=== PATIENT | male | born 1995 | race Caucasian/White ===

== ENCOUNTER 2017-05-08 16:30 | Inpatient (IN) | payer MEDICAID ==
[~2017-05-08] VITALS: Ht 185.4 cm; Wt 80.3 kg
[2017-05-08 17:31] LABS: microscopic required? NO
[2017-05-08 17:52] LABS: PLATELET COUNT 209 x10^3mcL (130-400); RED CELL DISTRIBUTION WIDTH 12.8 % (11.5-14.5)
[2017-05-08 17:58] LABS: UA SPECIFIC GRAVITY <=1.005 (1.005-1.035); urine erythrocyte NEGATIVE (NEGATIVE)
[2017-05-08 18:13] LABS: CALCIUM 8.8 mg/dL (8.5-10.1); CARBON DIOXIDE 26.5 mmol/L (21-32); CHLORIDE SERUM 104 mmol/L (98-107); CREATININE SERUM 0.8 mg/dL (0.7-1.3); GFR1 > 60 mL/min; GLUCOSE SERUM 97 mg/dL (74-106); POTASSIUM SERUM 3.3 mmol/L (3.5-5.1); SODIUM SERUM 143 mmol/L (136-145)
[2017-05-08 18:26] LABS: ALBUMIN 3.8 g/dL (3.4-5.0); ALKALINE PHOSPHATASE 90 U/L (46-116); ALT/SGPT 7 U/L (16-63); AMYLASE 100 U/L (25-115); AST/SGOT 10 U/L (15-37); BILIRUBIN TOTAL 0.25 mg/dL (0.20-1.00); CHOLESTEROL 194 mg/dL (<200); LIPASE 72 IU/L (73-393); MAGNESIUM 1.7 mg/dL (1.8-2.4); T4(THYROXINE) 9.5 ug/dL (4.7-13.3); TOTAL PROTEIN, SERUM 7.3 g/dL (6.4-8.2)
[2017-05-08 18:28] LABS: HDL CHOLESTEROL 31 mg/dL (40-60)
[2017-05-08 18:29] LABS: AMPHETAMINE QUAL UR NONE DETECTED (NEG <=1000)
[2017-05-08 20:53] LABS: FREE T4 1.26 ng/dL (0.76-1.46); T4(THYROXINE) 9.6 ug/dL (4.7-13.3)
[2017-05-08 20:56] LABS: T3 TOTAL 1.09 ng/mL
[2017-05-08 21:18] VITALS: BP 137/84
[2017-05-08] MEDS ORDERED: DIVALPROEX SOD500 M3 PO (21:40)
[2017-05-08] MEDS ORDERED: SUDOGEST60 MG PO (21:41)
[2017-05-08] MEDS ORDERED: RISPERIDONE4 M2 PO (21:41)
[2017-05-08] MEDS ORDERED: BENZTROPINE MESY1 MG PO (21:44)
[2017-05-09 05:25] VITALS: BP 125/78
[2017-05-09 07:07] LABS: CALCIUM 8.1 mg/dL (8.5-10.1); CARBON DIOXIDE 26.7 mmol/L (21-32); CHLORIDE SERUM 108 mmol/L (98-107); CREATININE SERUM 0.8 mg/dL (0.7-1.3); GFR1 > 60 mL/min; GLUCOSE SERUM 87 mg/dL (74-106); MAGNESIUM 2.3 mg/dL (1.8-2.4); PHOSPHOROUS 3.6 mg/dL (2.5-4.9); SODIUM SERUM 143 mmol/L (136-145)
[2017-05-09 07:25] LABS: BASOPHIL % 0.3 % (0-2); PLATELET COUNT 201 x10^3mcL (130-400); RED CELL DISTRIBUTION WIDTH 14.2 % (11.5-14.5)
[2017-05-09 11:49] VITALS: BP 121/56
[2017-05-09 12:53] VITALS: BP 118/69
[2017-05-09 17:18] VITALS: BP 106/58
[2017-05-09 21:24] VITALS: BP 116/61
[2017-05-10 06:37] LABS: CALCIUM 8.5 mg/dL (8.5-10.1); CARBON DIOXIDE 28.4 mmol/L (21-32); CHLORIDE SERUM 107 mmol/L (98-107); CREATININE SERUM 0.8 mg/dL (0.7-1.3); GFR1 > 60 mL/min; GLUCOSE SERUM 100 mg/dL (74-106); POTASSIUM SERUM 4.1 mmol/L (3.5-5.1); SODIUM SERUM 143 mmol/L (136-145)
[2017-05-10 06:40] LABS: BASOPHIL % 0.6 % (0-2); PLATELET COUNT 193 x10^3mcL (130-400); RED CELL DISTRIBUTION WIDTH 14.3 % (11.5-14.5)
[2017-05-10 06:53] VITALS: BP 123/82
[2017-05-10 09:35] VITALS: BP 94/49
[2017-05-10 09:36] VITALS: BP 123/62
[2017-05-10 12:48] VITALS: BP 114/60
[2017-05-10 17:13] VITALS: BP 98/58
[2017-05-10 20:13] VITALS: BP 100/64
[2017-05-11 06:04] VITALS: BP 105/55
[2017-05-11 09:45] VITALS: BP 119/72
[2017-05-11] MEDS ORDERED: KLO0.5 PO (12:38)
[2017-05-11] MEDS ORDERED: SERO100 PO (12:39)
[2017-05-11] MEDS ORDERED: ABILIFY10 M2 PO (12:39)
[2017-05-11 15:20] VITALS: BP 119/72
[2017-05-11 17:35] VITALS: BP 120/67
[2017-05-11 19:03] VITALS: Ht 185.4 cm; Wt 80.3 kg
[2017-05-11 20:23] VITALS: BP 116/64
[2017-05-12 05:12] VITALS: BP 117/81
[2017-05-12 09:02] VITALS: BP 122/70
[2017-05-12 09:25] VITALS: BP 122/70
== END 2017-05-12 09:45 | disposition home or self-care (01) | DRG 812 ==
LOC: ED 16:30 → DU 19:50 → MU 05-11 10:35
PROVIDERS: Emergency Medicine; Family Medicine
DX: T43.595A Adverse effect of other antipsychotics and neuroleptics, initial encounter (principal); G92 Toxic encephalopathy; E83.42 Hypomagnesemia; G25.71 Drug induced akathisia; F25.9 Schizoaffective disorder, unspecified; E87.6 Hypokalemia; E78.5 Hyperlipidemia, unspecified; G40.909 Epilepsy, unspecified, not intractable, without status epilepticus; D64.9 Anemia, unspecified; F15.10 Other stimulant abuse, uncomplicated; Z72.0 Tobacco use; Z68.23 Body mass index [BMI] 23.0-23.9, adult; Y92.009 Unspecified place in unspecified non-institutional (private) residence as the place of occurrence of the external cause
CPT/HCPCS: 82962; 83880; 84439; G0480; J1956; J2405; J3411; J3475; J3490; J7030; Q0092

== ENCOUNTER 2017-06-29 15:16 | Inpatient (IN) | payer MEDICAID ==
[~2017-06-29] VITALS: Ht 190.5 cm; Wt 88.9 kg
[~2017-06-29 15:16] MED LIST: ABILIFY10 M2 PO; BENZTROPINE MESY1 MG PO; DIVALPROEX SOD500 M3 PO; KLO0.5 PO; RISPERIDONE4 M2 PO; SERO100 PO; SUDOGEST60 MG PO
[2017-06-29 15:49] LABS: BASOPHIL % 0.5 % (0-2); PLATELET COUNT 203 x10^3mcL (130-400); RED CELL DISTRIBUTION WIDTH 13.9 % (11.5-14.5)
[2017-06-29 15:57] LABS: CALCIUM 8.3 mg/dL (8.5-10.1); CARBON DIOXIDE 25.7 mmol/L (21-32); CHLORIDE SERUM 105 mmol/L (98-107); CREATININE SERUM 0.7 mg/dL (0.7-1.3); GFR1 > 60 mL/min; GLUCOSE SERUM 106 mg/dL (74-106); POTASSIUM SERUM 4.3 mmol/L (3.5-5.1); SODIUM SERUM 138 mmol/L (136-145)
[2017-06-29 16:02] LABS: ALBUMIN 3.4 g/dL (3.4-5.0); ALKALINE PHOSPHATASE 85 U/L (46-116); ALT/SGPT 15 U/L (16-63); AST/SGOT 14 U/L (15-37); BILIRUBIN TOTAL 0.16 mg/dL (0.20-1.00); TOTAL PROTEIN, SERUM 6.7 g/dL (6.4-8.2)
[2017-06-29 16:41] LABS: microscopic required? NO
[2017-06-29 17:12] LABS: UA SPECIFIC GRAVITY <=1.005 (1.005-1.035); urine erythrocyte NEGATIVE (NEGATIVE)
[2017-06-29 17:16] LABS: AMPHETAMINE QUAL UR NONE DETECTED (NEG <=1000)
[2017-06-29] MEDS ORDERED: RISPERIDONE4 M2 PO (20:42)
[2017-06-29 21:05] LABS: T3 TOTAL 0.85 ng/mL
[2017-06-29 21:06] LABS: FREE T4 1.03 ng/dL (0.76-1.46); T4(THYROXINE) 5.6 ug/dL (4.7-13.3)
[2017-06-29 22:38] VITALS: BP 124/62
[2017-06-30 06:33] VITALS: BP 94/54
[2017-06-30 07:50] VITALS: BP 94/52
[2017-06-30 07:50] LABS: BASOPHIL % 0.4 % (0-2); PLATELET COUNT 204 x10^3mcL (130-400); RED CELL DISTRIBUTION WIDTH 14.5 % (11.5-14.5)
[2017-06-30 07:51] LABS: CHLORIDE SERUM 107 mmol/L (98-107); CREATININE SERUM 0.7 mg/dL (0.7-1.3); GFR1 > 60 mL/min; GLUCOSE SERUM 83 mg/dL (74-106); POTASSIUM SERUM 4.5 mmol/L (3.5-5.1); SODIUM SERUM 141 mmol/L (136-145)
[2017-06-30 08:49] VITALS: Ht 190.5 cm; Wt 88.9 kg
[2017-06-30 13:33] VITALS: BP 116/67
[2017-06-30 16:45] VITALS: BP 101/55
[2017-06-30 20:53] VITALS: BP 108/60
[2017-07-01 05:41] VITALS: BP 108/71
[2017-07-01 07:25] LABS: CALCIUM 8.6 mg/dL (8.5-10.1); CARBON DIOXIDE 28.7 mmol/L (21-32); CHLORIDE SERUM 110 mmol/L (98-107); CREATININE SERUM 0.7 mg/dL (0.7-1.3); GFR1 > 60 mL/min; GLUCOSE SERUM 86 mg/dL (74-106); POTASSIUM SERUM 4.4 mmol/L (3.5-5.1); SODIUM SERUM 145 mmol/L (136-145)
[2017-07-01 08:09] LABS: BASOPHIL % 0.5 % (0-2); PLATELET COUNT 218 x10^3mcL (130-400); RED CELL DISTRIBUTION WIDTH 14.1 % (11.5-14.5)
[2017-07-01] MEDS ORDERED: KLO0.5 PO (09:25)
[2017-07-01] MEDS ORDERED: DIVALPROEX SOD500 M3 PO (09:25)
[2017-07-01] MEDS ORDERED: RISPERIDONE4 M2 PO (09:26)
[2017-07-01] MEDS ORDERED: BENZTROPINE MESY1 MG PO (09:26)
[2017-07-01] MEDS ORDERED: ABILIFY10 M2 PO (09:26)
[2017-07-01 10:06] VITALS: BP 112/64
[2017-07-01 10:21] VITALS: BP 112/64
== END 2017-07-01 10:48 | disposition home or self-care (01) | DRG 812 ==
LOC: ED 15:16 → DU 21:27
PROVIDERS: Emergency Medicine; Student in an Organized Health Care Education/Training Program
DX: T43.591A Poisoning by other antipsychotics and neuroleptics, accidental (unintentional), initial encounter (principal); G92 Toxic encephalopathy; E83.51 Hypocalcemia; F25.1 Schizoaffective disorder, depressive type; F31.9 Bipolar disorder, unspecified; E78.5 Hyperlipidemia, unspecified; F41.9 Anxiety disorder, unspecified; E02 Subclinical iodine-deficiency hypothyroidism; F17.210 Nicotine dependence, cigarettes, uncomplicated; Y92.89 Other specified places as the place of occurrence of the external cause
CPT/HCPCS: 83880; 84439; G0480; J7030